=== PATIENT | male | born 1975 | race Caucasian/White ===

== ENCOUNTER → 2021-10-27 | Outpatient (CLI) | payer OTHER | LOC: M CARPUL 08:33 | PROVIDERS: ATTEND General Practice | DX: R06.2 Wheezing (principal) ==

== ENCOUNTER → 2022-05-07 | Outpatient (REF) | LOC: M PLAIMG 11:09 | PROVIDERS: ATTEND Internal Medicine | DX: R52 Pain, unspecified (principal) ==

== ENCOUNTER 2022-06-17 08:45 | Day surgery (SDC) | payer OTHER ==
[~2022-06-17] VITALS: Ht 170.2 cm; Wt 100.6 kg
[~2022-06-17 08:45] MED LIST: ALLE1TAB23 PO; NS 1,000 ML IV ONE; OMEP40CA4 PO
[2022-06-17] MEDS ORDERED: propofoL 500 MG/50 ML VIAL As Ordered ONE (10:39)
[2022-06-17] MEDS ORDERED: LIDOCAINE 2% 100MG/5ML SDV (FOR ANES.) As Ordered ONE (10:39)
[2022-06-17] MEDS ORDERED: fentaNYL 100 MCG/2 ML INJECTION As Ordered ONE (10:39)
[2022-06-17 11:46] VITALS: BP 125/83
== END 2022-06-17 11:48 | disposition home or self-care (01) ==
LOC: M OPP 08:45
PROVIDERS: ATTEND Internal Medicine Gastroenterology
DX: Z12.11 Encounter for screening for malignant neoplasm of colon (principal); K64.0 First degree hemorrhoids; K57.30 Diverticulosis of large intestine without perforation or abscess without bleeding; K31.7 Polyp of stomach and duodenum; Z79.899 Other long term (current) drug therapy; Z91.048 Other nonmedicinal substance allergy status
CPT/HCPCS: 43239; 45378; 88305; J3010